=== PATIENT | male | born 1940 | race Caucasian/White ===

== ENCOUNTER 2022-09-21 11:33 | Emergency (ER) | payer OTHER, SELFPAY ==
--- NOTE | ~2022-09-21 | XR_ITS ---
EXAMINATION: XR foot LT min 3V DATE: 09/21/2022 12:36 INDICATION: Left foot wound with pain and erythema TECHNIQUE: Dorsoplantar, two oblique and lateral views of the left foot were obtained. COMPARISON: None. FINDINGS: Alignment is normal. No fracture. 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 There is a juxta articular erosion with overhanging cortical sheng ns and thin sclerotic margins at the medial head of the first metatarsal with classic location and ap pearance for an erosion in the setting of gout. Is a second similar-appearing erosion at the medial s gertrudis of the head of the second proximal phalanx. There is soft tissue swelling surrounding both lesion s. There appears be a possible additional erosion with sclerotic dorsal margin along the proximal mar gin of the navicula. IMPRESSION: 1. Juxta articular erosions with thin sclerotic margins and overhanging edges typical for gout at the medial heads of the first metatarsal and second proximal phalanx, possibly also along the navicula. The former is also in typical location for gout. Reviewed, dictated and finalized at location [facility] [employer] IMPRESSION: 1. Juxta articular erosions with thin sclerotic margins and overhanging edges t ypical for gout at the medial heads of the first metatarsal and second proximal phalanx, possibly also along the navicula. The former is also in typical locat ion for gout.
[2022-09-21 11:38] VITALS: BP 124/87; PULSE 83; RESP 18; TEMP 36.4; O2SAT 96
[2022-09-21 12:53] LABS: Basophils Absolute Auto 0.1 K/mm3 (0.0-0.1); Basophils Percent Auto 0.6 % (0.2-1.2); Eosinophils Absolute Auto 0.4 K/mm3 (0-0.3); Hematocrit 28.9 % (42.0-52.0); Hemoglobin 9.2 g/dL (14.0-18.0); Immature Granulocyte Absolute 0.05 K/mm3 (0.00-0.031); Immature Granulocyte Percent A 0.6 % (0-0.5); Lymphocytes Absolute Auto 1.28 K/mm3 (0.9-3.2); Lymphocytes Percent Auto 14.2 % (18.3-44.2); Mean Corpuscular HGB Conc 31.8 g/dl (32-36); Mean Corpuscular Hemoglobin 32.4 pg (26-34); Mean Corpuscular Volume 101.8 fl (80-100); Monocytes Absolute Auto 0.8 K/mm3 (0.1-0.6); Monocytes Percent Auto 8.8 % (2.6-8.5); Neutrophils Absolute Auto 6.5 K/mm3 (1.3-6.7); Neutrophils Percent Auto 71.8 % (45.5-73.1); Platelet Count Result 158 k/mm3 (150-375); Red Blood Count 2.84 M/mm3 (4.6-6.20); Red Cell Distribution Width 16.4 % (11.5-14.5)
[2022-09-21 13:05] LABS: Alanine Aminotransferase 14 U/L (6-50); Albumin Level 4.2 g/dL (3.5-5.1); Alkaline Phosphatase 86 U/L (38-126); Anion Gap 7 mmol/L (8-16); Aspartate Amino Transferase 25 U/L (17-59); Bilirubin,Total 0.6 mg/dL (0.2-1.3); Blood Urea Nitrogen 35 mg/dL (9-20); Calcium 8.9 mg/dL (8.4-10.2); Carbon Dioxide 28 mmol/L (22-30); Chloride 102 mmol/L (98-107); Estimated CRCL calculation 31 ml/min; Estimated Glomerular Filt Rate 36; Glucose 112 mg/dL (65-110); Potassium 4.1 mmol/L (3.4-5.0); Sodium 137 mmol/L (137-145)
[2022-09-21 13:06] LABS: INR 1.2; Lactic Acid Reflex 1.3 mmol/L (0.7-2.0); Prothrombin Time 15.1 Seconds (11.1-14.7)
[2022-09-21 13:07] LABS: Partial Thromboplastin Time 34.2 SECONDS (22.3-36.8)
[2022-09-21 13:22] LABS: Uric Acid 8.9 mg/dL (3.5-8.5)
[2022-09-21] MEDS: CEPHALEXIN 500 MG CAPSULE PO (14:01)
--- NOTE | 2022-09-21 14:35 | ED.GENADULT ---
HPI - General Adult General Chief complaint: Extremity Problem,Nontraumatic Stated complaint: toe wound Time Seen by Provider: 09/21/22 12:10 Source: RN notes reviewed History of Present Illness HPI narrative: Patient presents emergency room from home for left toe wound. Patient states that he has been having an ongoing problem with his right second toe for the past 2 years he states he is followed by podiatry at the [place] but they do not seem to be doing anything for it. States that he began to notice some redness around the dorsal aspect of the toe about 3 days ago he states he does have wounds on the toe that is been open as well as swelling over the lateral aspect of the left foot. He denies having any fevers or chills he denies any trauma or injury states he does have a history of peripheral neuropathy and has not noted any pain Related Data Allergies Allergy/AdvReac Type Severity Reaction Status Date / Time No Known Allergies Allergy Verified 09/21/22 11:42 Review of Systems Review of Systems: Gen.: Denies fevers or chills ENT: Denies congestion Respiratory: Denies shortness of breath or cough CV: Denies chest pain or palpitations GI: Denies abdominal pain nausea, emesis or diarrhea Musculoskeletal: Reports left foot wounds Neuro: Denies numbness, tingling, weakness or focal weakness Skin: See HPI Except as documented, all other systems reviewed and negative PMFSH Past Medical History Medical History (Updated 09/21/22 @ 14:41 by Estiven Andres DO) Patient denies significant medical history Social History Social History (Updated 09/21/22 @ 14:37 by Estiven Andres DO) Smoking status: Never smoker Exam Narrative: APPEARANCE: No acute distress, nontoxic, resting in bed Eyes: EOMI HEENT: Normocephalic, atraumatic, RESPIRATORY: No respiratory distress MUSCULOSKELETAl: The left second toe has gouty tophi over the PIP joint dorsal aspect with surrounding erythema there is no circumferential erythema no erythema over the plantar aspect of the toe erythema does not extend into the foot past the toe the remainder of the toes are normal in appearance there is 1 area of gouty tophi over the left dorsalis pedis pulse 2+ neurovascular intact NEURO: Awake and alert. Following commands, speech normal, no focal deficits SKIN:: Warm, dry. Normal Color no rash or lesions Course Course Emergency Course: Pulses also checked by Doppler by nursing staff and is present Discussed with patient results of workup and diagnosis. Discussed need for follow-up with primary care, proper use of medication, and reasons to return to the emergency department. Patient understands and agrees to current treatment plan Vital Signs Vital signs: Vital Signs Temperature 97.6 F 09/21/22 11:38 Pulse Rate 83 09/21/22 11:38 Respiratory Rate 18 09/21/22 11:38 Blood Pressure 124/87 09/21/22 11:38 Pulse Oximetry 96 09/21/22 11:38 Oxygen Delivery Room Air 09/21/22 11:38 Temperature 97.6 F 09/21/22 11:38 Pulse Rate 83 09/21/22 11:38 Respiratory Rate 18 09/21/22 11:38 Blood Pressure 124/87 09/21/22 11:38 Pulse Oximetry 96 09/21/22 11:38 Oxygen Delivery Room Air 09/21/22 11:38 Medical Decision Making MDM Narrative Medical decision making narrative: Patient presents with toe wound for the past 2 years mild erythema over the past several days patient is known to have elevated uric acid gouty tophi present and x-ray shows signs of gout discussed with patient this diagnosis of gout need for follow-up with his PCP 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
== END 2022-09-21 15:00 | disposition home or self-care (01) ==
PROVIDERS: Emergency Provider Emergency Medicine
DX: L03.032 Cellulitis of left toe (principal); M1A.9XX1 Chronic gout, unspecified, with tophus (tophi); G62.9 Polyneuropathy, unspecified
CPT/HCPCS: 36415; 73630; 80053; 83605; 84550; 85025; 85610; 85730; 99283; A9270